=== PATIENT | male | born 1960 | race Caucasian/White ===

== ENCOUNTER 2024-10-30 16:57 | Emergency (ER) | payer MEDICAID, OTHER ==
[~2024-10-30] VITALS: Ht 170.2 cm; Wt 91.0 kg
[~2024-10-30 16:57] MED LIST: AMLO10TA80 PO; ASPI-1406 PO; ATOR20TA PO; LOSA50TA41 PO
[2024-10-30 17:01] VITALS: PULSE 90; RESP 14; O2SAT 98
[2024-10-30 17:07] VITALS: BP 160/99; TEMP 36.6; O2SAT 99
[2024-10-30 17:35] LABS: BASOPHILS % 0.8 % (0.0-2.0); EOSINOPHILS % 3.1 % (0.0-5.0); HEMATOCRIT. 46.4 % (42.0-52.0); HEMOGLOBIN. 15.8 g/dL (14.0-18.0); MEAN CORPUSCULAR HEMOGLOBIN 31.5 pg (28.0-32.0); MEAN CORPUSCULAR VOLUME 92.6 fL (80.0-94.0); MEAN PLATELET VOLUME 9.1 fl (7.4-10.4); MONOCYTES % 12.3 % (2.0-8.0); NEUTROPHILS % 47.8 % (40.0-76.0); PLATELET 261 x1000/uL (130-400); RED BLOOD CELL COUNT 5.01 mill/uL (4.7-6.1); RED CELL DISTRIBUTION WIDTH 12.7 % (11.6-14.6); WHITE BLOOD COUNT 7.1 x1000/uL (4.5-11.0)
[2024-10-30 17:43] LABS: CHLORIDE 103 mEq/L (98-107); POTASSIUM 3.4 mEq/L (3.5-5.1); SODIUM 141 mEq/L (136-145)
[2024-10-30 17:44] LABS: CALCIUM 9.1 mg/dL (8.7-10.4); CARBON DIOXIDE 30 mEq/L (21-32)
[2024-10-30 17:49] LABS: CREATININE 0.7 mg/dL (0.6-1.3); GLUCOSE 127 mg/dL (70-105); UREA NITROGEN BLOOD 10 mg/dL (9-23)
[2024-10-30 17:50] LABS: TROPONIN I HIGH SENSITIVITY 5 ng/L (3.0-53)
[2024-10-30] MEDS: MECLIZINE 25MG TABLET PO ONE (19:47)
[2024-10-30 20:03] LABS: TROPONIN I HIGH SENSITIVITY 5 ng/L (3.0-53)
[2024-10-30] MEDS ORDERED: MECL-299 MT (21:14)
[2024-10-30] MEDS ORDERED: NAPR-677 MT (21:14)
[2024-10-30] MEDS ORDERED: IOHEXOL-350 100 ML BOTTLE ONE (22:11)
== END 2024-10-30 21:31 | disposition home or self-care (01) ==
LOC: ER 16:57
DX: R42 Dizziness and giddiness (principal); M45.2 Ankylosing spondylitis of cervical region; I10 Essential (primary) hypertension; Z79.1 Long term (current) use of non-steroidal anti-inflammatories (NSAID); Z79.82 Long term (current) use of aspirin; Z79.899 Other long term (current) drug therapy; Z86.73 Personal history of transient ischemic attack (TIA), and cerebral infarction without residual deficits
CPT/HCPCS: 99285; 70496; 80048; 85025; 84484; 36415; 70498; 93005; Q9967; J8597

== ENCOUNTER 2024-11-22 17:07 | Emergency (ER) | payer OTHER ==
[~2024-11-22] VITALS: Ht 167.6 cm; Wt 82.0 kg
[~2024-11-22 17:07] MED LIST changes: +MECL-299 MT; +NAPR-677 MT
[2024-11-22 17:08] VITALS: BP 173/100; PULSE 80; RESP 16; TEMP 36.9; O2SAT 99
[2024-11-22] MEDS ORDERED: MELO-104 PO (19:04)
[2024-11-22] MEDS: KETOROLAC 30MG/ML VIAL IM STA (19:18)
== END 2024-11-22 19:29 | disposition home or self-care (01) ==
LOC: ER 17:07
DX: M25.461 Effusion, right knee (principal); E78.00 Pure hypercholesterolemia, unspecified; I10 Essential (primary) hypertension; Z79.1 Long term (current) use of non-steroidal anti-inflammatories (NSAID); Z79.82 Long term (current) use of aspirin; Z79.899 Other long term (current) drug therapy
CPT/HCPCS: 73562; 96372; 99283; J1885; Z7610